=== PATIENT | male | born 1950 | race Caucasian/White ===

== ENCOUNTER 2017-01-10 14:04 | Emergency (ER) | payer MEDICARE ==
[~2017-01-10] VITALS: Ht 182.9 cm; Wt 80.0 kg
[2017-01-10 14:06] VITALS: BP 111/66; PULSE 64; RESP 20; TEMP 97.4; O2SAT 97
[2017-01-10] MEDS ORDERED: ATOR40TA16 PO (14:52)
[2017-01-10] MEDS ORDERED: CLOP75TA PO (14:53)
[2017-01-10] MEDS ORDERED: ASPI81CH CHEW (14:53)
[2017-01-10] MEDS ORDERED: SODIUM CHLORIDE 0.9% FLUSH 5 ML FLUSH IVF PRN (15:00)
--- NOTE | 2017-01-10 15:06 | PD ---
HPI Chief Complaint: Respiratory Symptoms Time Seen by Provider: 14:55 Travel History International Travel<30 days: No Contact w/Intl Traveler<30days: No Traveled to known affect area: No History of Present Illness HPI 66-year-old male presents with sister for evaluation of shortness of breath. The patient reports that last week he was admitted at [facility] for stroke symptoms. He underwent a left carotid stent on January 05. She was discharged on January 06 with prescriptions for Plavix, aspirin, Lipitor. Reports that after discharge and feeling shortness of breath. The dyspnea is primarily on exertion when he is walking around in his house. He has no dyspnea when resting or orthopnea. Symptoms are somewhat improved today but his family encouraged him to come for evaluation. He has had no chest pain, no headache, no neck pain, no nausea or vomiting, no calf pain or swelling. He reports that he was hospitalized at [facility] for 4 days and essentially was immobilized during most of his stay and he feels that his symptoms were secondary to deconditioning. He denies any history of PE/DVT, cardiac disease. No other complaints. [facility] Past Medical History Medical History: Denies Significant Hx Hx Anticoagulant Therapy: Yes (PLAVIX) Cardiovascular Problems: Yes (1 STENT) Past Surgical History Other Surgery: Yes (caroitid stent 12/2016) Social History Alcohol Use: Yes (rarely ) Tobacco Use: No Substance Use: No Allergies-Medications (Allergen,Severity, Reaction): Coded Allergies: No Known Allergies (Unverified , 01/10/17) Reported Meds & Prescriptions Reported Meds & Active Scripts Active Reported Aspirin 81 Mg Chew 81 Mg CHEW DAILY Clopidogrel (Clopidogrel Bisulfate) 75 Mg Tab 75 Mg PO DAILY Atorvastatin (Atorvastatin Calcium) 40 Mg Tab 40 Mg PO HS Review of Systems Except as stated in HPI: all other systems reviewed are Neg Physical Exam Narrative GENERAL: Pleasant well-developed well-nourished male in no acute distress resting comfortably in hospital bed SKIN: Warm and dry. HEAD: Atraumatic. Normocephalic. EYES: Pupils equal and round. No scleral icterus. No injection or drainage. ENT: No nasal bleeding or discharge. Mucous membranes pink and moist. NECK: Trachea midline. No JVD. CARDIOVASCULAR: Regular rate and rhythm. No murmur appreciated. RESPIRATORY: No accessory muscle use. Clear to auscultation. Breath sounds equal bilaterally. No crackles no wheezing no rhonchi GASTROINTESTINAL: Abdomen soft, non-tender, nondistended. Hepatic and splenic margins not palpable. MUSCULOSKELETAL: No obvious deformities. There is no edema. NEUROLOGICAL: Awake and alert. No obvious cranial nerve deficits. Motor grossly within normal limits. Normal speech. PSYCHIATRIC: Appropriate mood and affect; insight and judgment normal. Data Data Last Documented VS Vital Signs Date Time Temp Pulse Resp B/P Pulse Ox O2 Delivery O2 Flow Rate FiO2 01/10/17 15:41 Nasal Cannula 2 01/10/17 15:41 16 98 01/10/17 14:53 61 01/10/17 14:25 01/10/17 14:06 97.4 Orders Complete Blood Count With Diff (01/10/17 14:57) Basic Metabolic Panel (Bmp) (01/10/17 14:57) B-Type Natriuretic Peptide (01/10/17 14:57) D-Dimer (01/10/17 14:57) Magnesium (Mg) (01/10/17 14:57) Ckmb (Isoenzyme) Profile (01/10/17 14:57) Troponin I (01/10/17 14:57) Iv Access Insert/Monitor (01/10/17 14:57) Electrocardiogram (01/10/17 14:57) Ecg Monitoring (01/10/17 14:57) Oximetry (01/10/17 14:57) Oxygen Administration (01/10/17 14:57) Chest, Single Ap (01/10/17 14:57) Sodium Chloride 0.9% Flush (Ns Flush) (01/10/17 15:00) Ct Pulmonary Angiogram (01/10/17 16:42) Iohexol 350 Inj (Omnipaque 350 Inj) (01/10/17 17:53) Labs Laboratory Tests Test 01/10/17 15:30 White Blood Count 13.5 TH/MM3 Red Blood Count 3.98 MIL/MM3 Hemoglobin 11.8 GM/DL Hematocrit 34.3 % Mean Corpuscular Volume 86.2 FL Mean Corpuscular Hemoglobin 29.8 PG Mean Corpuscular Hemoglobin 34.5 % Concent Red Cell Distribution Width 13.1 % Platelet Count 244 TH/MM3 Mean Platelet Volume 9.6 FL Neutrophils (%) (Auto) 79.5 % Lymphocytes (%) (Auto) 10.0 % Monocytes (%) (Auto) 9.1 % Eosinophils (%) (Auto) 1.0 % Basophils (%) (Auto) 0.4 % Neutrophils # (Auto) 10.7 TH/MM3 Lymphocytes # (Auto) 1.3 TH/MM3 Monocytes # (Auto) 1.2 TH/MM3 Eosinophils # (Auto) 0.1 TH/MM3 Basophils # (Auto) 0.1 TH/MM3 CBC Comment DIFF FINAL Differential Comment D-Dimer Quantitative (PE/DVT) 1.02 MG/L FEU Sodium Level 137 MEQ/L Potassium Level 4.3 MEQ/L Chloride Level 102 MEQ/L Carbon Dioxide Level 27.6 MEQ/L Anion Gap 7 MEQ/L Blood Urea Nitrogen 16 MG/DL Creatinine 1.02 MG/DL Estimat Glomerular Filtration 73 ML/MIN Rate Random Glucose 88 MG/DL Calcium Level 8.9 MG/DL Magnesium Level 2.0 MG/DL Total Creatine Kinase 64 U/L Troponin I LESS THAN 0.02 NG/ML B-Type Natriuretic Peptide 19 PG/ML MDM Medical Decision Making Medical Screen Exam Complete: Yes Emergency Medical Condition: Yes Medical Record Reviewed: Yes Interpretation(s) EKG sinus bradycardia Chest x-ray normal CBC WBC 13.5 BMP normal Troponin, CK negative BNP Dimer 1.02 CONCLUSION: 1. No pulmonary embolus or other acute cardiopulmonary disease demonstrated. 2. Coronary artery calcification. Differential Diagnosis Atelectasis, PE, spontaneous pneumothorax, anginal equivalent, new-onset CHF Narrative Course This is a 66-year-old male who is admitted for stroke like symptoms last week at [facility] and hospitalized for 4 days. Discharged on Thursday and he' s been feeling dyspneic with exertion since discharge. Symptoms are somewhat improved today. He is having no chest pain or calf pain and the likelihood of PE is low but given his period of immobilization a d-dimer will be ordered. In addition basic lab work, cardiac enzymes, EKG and chest x-ray ordered. Patient is currently resting comfortably and stable. D-dimer is elevated so CT pulmonary angiogram has been ordered. CT pulmonary exam was negative. Given his dyspnea on exertion, it is reasonable to have the patient stay for serial cardiac enzymes and rule out purposes but the patient declined. He is stable for discharge and outpatient follow-up with his primary care physician. Diagnosis Primary Impression: Dyspnea Qualified Code: R06.00 - Dyspnea, unspecified type Additional Instructions: Follow-up closely with primary care physician. Return for any acutely new worsening symptoms. Med/Other Pt SpecificInfo: No Change to Meds Disposition: 01 DISCHARGE HOME Condition: Stable Jasson Shoemaker Jan 10, 2017 15:06
--- NOTE | 2017-01-10 15:30 | RADRPT ---
EXAM DATE/TIME: 01/10/2017 14:59 [facility] COMPARISON: No previous studies available for comparison. INDICATIONS : Short of breath MEDICAL HISTORY : None. SURGICAL HISTORY : None. ENCOUNTER: Initial ACUITY: 1 day PAIN SCORE: 0/10 LOCATION: Bilateral chest FINDINGS: A single view of the chest demonstrates the lungs to be symmetrically aerated without evidence of mas s, infiltrate or effusion. The cardiomediastinal contours are unremarkable. Osseous structures are intact. CONCLUSION: No evidence of acute cardiopulmonary disease. Colton Nix MD on January 10, 2017 at 15:28 Board Certified Radiologist. This report was verified electronically.
[2017-01-10 15:41] VITALS: RESP 16; O2SAT 98
[2017-01-10 16:14] LABS: AUTOMATED NEUTROPHIL # 10.7 TH/MM3 (1.8-7.7); BASOPHIL # 0.1 TH/MM3 (0-0.2); BASOPHIL % 0.4 % (0.0-2.0); EOSINOPHIL # 0.1 TH/MM3 (0-0.4); HEMATOCRIT 34.3 % (39.0-51.0); HEMO FLAGS DIFF FINAL; LYMPHOCYTE # 1.3 TH/MM3 (1.0-4.8); MEAN CELL VOLUME 86.2 FL (80.0-100.0); MEAN CORPUSCULAR HEMOGLOBIN 29.8 PG (27.0-34.0); MEAN CORPUSCULAR HGB CONC 34.5 % (32.0-36.0); MONO % 9.1 % (0.0-8.0); NEUT % 79.5 % (16.0-70.0); PLATELET COUNT 244 TH/MM3 (150-450); RED BLOOD COUNT 3.98 MIL/MM3 (4.50-5.90); RED CELL DISTRIBUTION WIDTH 13.1 % (11.6-17.2); WHITE BLOOD COUNT 13.5 TH/MM3 (4.0-11.0)
[2017-01-10 16:38] LABS: ANION GAP 7 MEQ/L (5-15); BICARBONATE 27.6 MEQ/L (21.0-32.0); BLOOD UREA NITROGEN 16 MG/DL (7-18); CHLORIDE 102 MEQ/L (98-107); GLOMERULAR FILTRATION RATE 73 ML/MIN (>89); SODIUM (NA) 137 MEQ/L (136-145)
[2017-01-10 16:39] LABS: POTASSIUM 4.3 MEQ/L (3.5-5.1)
[2017-01-10 16:47] LABS: CREATINE KINASE 64 U/L (39-308)
--- NOTE | 2017-01-10 16:55 | PD ---
Data Data Last Documented VS Vital Signs Date Time Temp Pulse Resp B/P Pulse Ox O2 Delivery O2 Flow Rate FiO2 01/10/17 15:41 Nasal Cannula 2 01/10/17 15:41 16 98 01/10/17 14:53 61 01/10/17 14:25 01/10/17 14:06 97.4 Orders Complete Blood Count With Diff (01/10/17 14:57) Basic Metabolic Panel (Bmp) (01/10/17 14:57) B-Type Natriuretic Peptide (01/10/17 14:57) D-Dimer (01/10/17 14:57) Magnesium (Mg) (01/10/17 14:57) Ckmb (Isoenzyme) Profile (01/10/17 14:57) Troponin I (01/10/17 14:57) Iv Access Insert/Monitor (01/10/17 14:57) Electrocardiogram (01/10/17 14:57) Ecg Monitoring (01/10/17 14:57) Oximetry (01/10/17 14:57) Oxygen Administration (01/10/17 14:57) Chest, Single Ap (01/10/17 14:57) Sodium Chloride 0.9% Flush (Ns Flush) (01/10/17 15:00) Ct Pulmonary Angiogram (01/10/17 16:42) Labs Laboratory Tests Test 01/10/17 15:30 White Blood Count 13.5 TH/MM3 Red Blood Count 3.98 MIL/MM3 Hemoglobin 11.8 GM/DL Hematocrit 34.3 % Mean Corpuscular Volume 86.2 FL Mean Corpuscular Hemoglobin 29.8 PG Mean Corpuscular Hemoglobin 34.5 % Concent Red Cell Distribution Width 13.1 % Platelet Count 244 TH/MM3 Mean Platelet Volume 9.6 FL Neutrophils (%) (Auto) 79.5 % Lymphocytes (%) (Auto) 10.0 % Monocytes (%) (Auto) 9.1 % Eosinophils (%) (Auto) 1.0 % Basophils (%) (Auto) 0.4 % Neutrophils # (Auto) 10.7 TH/MM3 Lymphocytes # (Auto) 1.3 TH/MM3 Monocytes # (Auto) 1.2 TH/MM3 Eosinophils # (Auto) 0.1 TH/MM3 Basophils # (Auto) 0.1 TH/MM3 CBC Comment DIFF FINAL Differential Comment D-Dimer Quantitative (PE/DVT) 1.02 MG/L FEU Sodium Level 137 MEQ/L Potassium Level 4.3 MEQ/L Chloride Level 102 MEQ/L Carbon Dioxide Level 27.6 MEQ/L Anion Gap 7 MEQ/L Blood Urea Nitrogen 16 MG/DL Creatinine 1.02 MG/DL Estimat Glomerular Filtration 73 ML/MIN Rate Random Glucose 88 MG/DL Calcium Level 8.9 MG/DL Magnesium Level 2.0 MG/DL Total Creatine Kinase 64 U/L Troponin I LESS THAN 0.02 NG/ML MDM Supervised Visit with VIRY: Yes Narrative Course I, Dr. Mi, have reviewed the advance practice practioner's documentation and am in agreement, met with the patient face to face, made the diagnosis, and the medical decision making was done by me. *My assessment and Findings: 66-year-old male here with complaint of dyspnea, primarily upon exertion for the last several days. Patient recently hospitalized at [place] with a stroke and diagnosed with left carotid stenosis status post stent placement. Patient states that since discharge she has had some slight dyspnea primarily with exertion, walking around the house. No chest pain, history of DVT or PE. Patient has been on Plavix since hospital discharge. He denies any history of cardiac disease, no history of stress testing. Differential includes atelectasis, PE, ACS, symptomatic anemia. Twelve-lead EKG shows sinus bradycardia, laboratory workup with positive d- dimer. Will obtain CT pulmonary angiogram. If negative, given patient's age having the stress test is warranted however patient does not want to stay in our chest pain center and will be recommended to have this performed as an outpatient. Gretel Mi MD Jan 10, 2017 16:55
[2017-01-10] MEDS ORDERED: IOHEXOL 350 MG/ML 10 ML VIAL (for RAD DIAG) IV ONE (17:53)
--- NOTE | 2017-01-10 18:19 | RADRPT ---
EXAM DATE/TIME: 01/10/2017 17:50 [facility] COMPARISON: No previous studies available for comparison. INDICATIONS : Shortness of breath; evaluate for emboli. IV CONTRAST: 60 cc Omnipaque 350 (iohexol) IV RADIATION DOSE: 23.21 CTDIvol (mGy) MEDICAL HISTORY : Cardiovascular disease. SURGICAL HISTORY : Coronary artery stent. ENCOUNTER: Initial ACUITY: 1 day PAIN SCALE: 0/10 LOCATION: chest TECHNIQUE: Volumetric scanning of the chest was performed using a pulmonary embolism protocol MIP images were re constructed. Using automated exposure control and adjustment of the mA and/or kV according to patien t size, radiation dose was kept as low as reasonably achievable to obtain optimal diagnostic quality images. FINDINGS: PULMONARY ARTERIES: No filling defects are seen in the pulmonary arteries through the segmental level. LUNGS: There is no consolidation or pneumothorax . No concerning pulmonary nodule is visualized. PLEURAE: There is no pleural thickening or pleural effusion. MEDIASTINUM: There is good visualization of the great vessels of the middle mediastinum. No evidence of mediastin al or hilar adenopathy/mass. Scattered right and left coronary artery calcifications are demonstrated . MUSCULOSKELETAL: Within normal limits for patient age. MISCELLANEOUS: The visualized upper abdominal organs demonstrate no acute abnormality. CONCLUSION: 1. No pulmonary embolus or other acute cardiopulmonary disease demonstrated. 2. Coronary artery calcification. Colton Nix MD on January 10, 2017 at 18:16 Board Certified Radiologist. This report was verified electronically.
--- NOTE | 2017-01-12 07:09 | EKG ---
Date Performed: 01/10/2017 Time Performed: 14:54:20 PTAGE: 66 years EKG: SINUS BRADYCARDIA BORDERLINE ECG NO PREVIOUS TRACING DOCTOR: Daryl Frost Interpretating Date/Time 01/12/2017 07:08:53
== END 2017-01-10 18:51 | disposition home or self-care (01) ==
LOC: NEPA 14:04
DX: R06.00 Dyspnea, unspecified (principal); R94.31 Abnormal electrocardiogram [ECG] [EKG]
CPT/HCPCS: 71010; 71275; 80048; 82550; 83735; 83880; 84484; 85025; 85379; 93005; 99285; Q9967